=== PATIENT | female | born 1965 | race Caucasian/White ===

== ENCOUNTER 2016-08-26 10:03 | Emergency (ER) | payer SELFPAY ==
--- NOTE | 2016-08-26 10:09 | ER Document Report ---
ED Medical Screen (RME) - General Stated Complaint: ABSCESS Mode of Arrival: Ambulatory Information source: Patient Notes: Patient with abscess to left axilla for the past week. Patient does report a history of diabetes I have greeted and performed a rapid initial assessment of this patient. A comprehensive ED assessment and evaluation of the patient, analysis of test results and completion of the medical decision making process will be conducted by additional ED providers. TRAVEL OUTSIDE OF THE [place] IN LAST 30 DAYS: No - Related Data Allergies/Adverse Reactions: No Known Allergies Allergy (Unverified 12/23/10 05:33) Past Medical History Endocrine Medical History: Reports: Hx Diabetes Mellitus Type 2 Past Surgical History: Reports: Hx Section, Hx Cholecystectomy, Hx Tonsillectomy Physical Exam - Vital signs Vitals: Temp Pulse Resp BP Pulse Ox 99.0 F 101 H 16 131/79 H 96 08/26/16 10:06 08/26/16 10:06 08/26/16 10:06 08/26/16 10:06 08/26/16 10:06 - Skin Skin irregularity: Abscess - Left axilla Course - Vital Signs Vital signs: Temp Pulse Resp BP Pulse Ox 99.0 F 101 H 16 131/79 H 96 08/26/16 10:06 08/26/16 10:06 08/26/16 10:06 08/26/16 10:06 08/26/16 10:06
[2016-08-26] MEDS ORDERED: LIDOCAINE 1% INJ-PF (10 MG/ML) 30 ML SDV INJ ONE (11:50)
--- NOTE | 2016-08-26 12:42 | ER Document Report ---
ED General - General Chief Complaint: Boil Stated Complaint: ABSCESS Mode of Arrival: Ambulatory Information source: Patient Notes: 50-year-old female presents with complaints of abscess on the left armpit of a few day duration. Patient denies any fevers or chills nausea vomiting or diarrhea. Patient has had one similar episode on her abdomen which did not require incision TRAVEL OUTSIDE OF THE [place] IN LAST 30 DAYS: No - HPI Onset: Last week Onset/Duration: Persistent Quality of pain: Achy Severity: Mild Pain Level: 1 Associated symptoms: Other Exacerbated by: Denies Relieved by: Denies Similar symptoms previously: Yes Recently seen / treated by doctor: No - Related Data Allergies/Adverse Reactions: No Known Allergies Allergy (Verified 08/26/16 10:09) Past Medical History - General Information source: Patient - Social History Smoking Status: Never Smoker Cigarette use (# per day): No Chew tobacco use (# tins/day): No Smoking Education Provided: No Frequency of alcohol use: None Drug Abuse: None Family History: Reviewed & Not Pertinent Patient has suicidal ideation: No Patient has homicidal ideation: No - Past Medical History Cardiac Medical History: Reports: Hx Hypertension Endocrine Medical History: Reports: Hx Diabetes Mellitus Type 2 Renal/ Medical History: Denies: Hx Peritoneal Dialysis Past Surgical History: Reports: Hx Section, Hx Cholecystectomy, Hx Tonsillectomy - Immunizations Hx Diphtheria, Pertussis, Tetanus Vaccination: Yes Hx Pneumococcal Vaccination: 07/25/14 Review of Systems - Review of Systems Notes: REVIEW OF SYSTEMS: CONSTITUTIONAL : Denies fever, chills, or sweats. Denies recent illness. EENT: Denies eye, ear, throat, or mouth pain or symptoms. Denies nasal or sinus congestion or discharge. Denies throat, tongue, or mouth swelling or difficulty swallowing. CARDIOVASCULAR: Denies chest pain. Denies palpitations or racing or irregular heart beat. Denies ankle edema. RESPIRATORY: Denies cough, cold, or chest congestion. Denies shortness of breath, difficulty breathing, or wheezing. GASTROINTESTINAL: Denies abdominal pain or distention. Denies nausea, vomiting , or diarrhea. Denies blood in vomitus, stools, or per rectum. Denies black, tarry stools. Denies constipation. GENITOURINARY: Denies difficulty urinating, painful urination, burning, frequency, blood in urine, or discharge. FEMALE GENITOURINARY: Denies vaginal bleeding, heavy or abnormal periods, irregular periods. Denies vaginal discharge or odor. MUSCULOSKELETAL: Denies back or neck pain or stiffness. Denies joint pain or swelling. SKIN: Admits to left armpit abscess HEMATOLOGIC : Denies easy bruising or bleeding. LYMPHATIC: Denies swollen, enlarged glands. NEUROLOGICAL: Denies confusion or altered mental status. Denies passing out or loss of consciousness. Denies dizziness or lightheadedness. Denies headache. Denies weakness or paralysis or loss of use of either side. Denies problems with gait or speech. Denies sensory loss, numbness, or tingling. Denies seizures. PSYCHIATRIC: Denies anxiety or stress. Denies depression, suicidal ideation, or homicidal ideation. ALL OTHER SYSTEMS REVIEWED AND NEGATIVE. Dictation was performed using [employer] voice recognition software PHYSICAL EXAMINATION: GENERAL: Well-appearing, well-nourished and in no acute distress. HEAD: Atraumatic, normocephalic. EYES: Pupils equal round and reactive to light, extraocular movements intact, conjunctiva are normal. ENT: Nares patent, oropharynx clear without exudates. Moist mucous membranes. NECK: Normal range of motion, supple without lymphadenopathy LUNGS: Breath sounds clear to auscultation bilaterally and equal. No wheezes rales or rhonchi. HEART: Regular rate and rhythm without murmurs ABDOMEN: Soft, nontender, nondistended abdomen. No guarding, no rebound. No masses appreciated. Female : deferred Musculoskeletal: Normal range of motion, no pitting or edema. No cyanosis. NEUROLOGICAL: Cranial nerves grossly intact. Normal speech, normal gait. Normal sensory, motor exams PSYCH: Normal mood, normal affect. SKIN: Abscess left armpit measuring 4 x 6 cm with drainage and fluctuance with erythema Physical Exam - Vital signs Vitals: Temp Pulse Resp BP Pulse Ox 99.0 F 101 H 16 131/79 H 96 08/26/16 10:06 08/26/16 10:06 08/26/16 10:06 08/26/16 10:06 08/26/16 10:06 Course - Re-evaluation Re-evalutation: 08/26/16 12:42 Physical examination was consistent with an abscess, area was incised large amount of pus was drained. Patient will be placed on antibiotics given surgical follow-up After performing a Medical Screening Examination, I estimate there is LOW risk for OPEN FRACTURE, COMPARTMENT SYNDROME, TENDON RUPTURE, ACUTE NEUROVASCULAR INJURY, or RETAINED FOREIGN BODY, thus I consider the discharge disposition reasonable. Also, there is no evidence or peritonitis, sepsis, or toxicity. The patient and I have discussed the diagnosis and risks, and we agree with discharging home with close follow-up with the understanding that symptoms and presentations can change. We also discussed returning to the Emergency Department immediately if new or worsening symptoms occur. We have discussed the symptoms which are most concerning (e.g., changing or worsening pain, fever , numbness, weakness, cool or painful digits) that necessitate immediate return. - Vital Signs Vital signs: Temp Pulse Resp BP Pulse Ox 99.0 F 101 H 16 131/79 H 96 08/26/16 10:06 08/26/16 10:06 08/26/16 10:06 08/26/16 10:06 08/26/16 10:06 Procedures - Incision and Drainage Left Arm Time completed: 12:42 Type: Single Anesthetic type: 1% Lidocaine mL's of anesthetic: 10 Blade size: 11 Incision Method: Incision made by scalpel Amount/type of drainage: large amount of pus Discharge - Discharge Clinical Impression: Abscess of axilla, left Condition: Stable Disposition: HOME, SELF-CARE Instructions: Abscess ([facility]), Post Incision and Drainage Prescriptions: Cephalexin Monohydrate [Keflex 500 mg Capsule] 500 mg PO QID #40 capsule Hydrocodone/Acetaminophen [[place] 5-325 mg Tablet] 1 tab PO Q6 #14 tablet Sulfamethoxazole/Trimethoprim [Bactrim Ds Tablet] 2 each PO BID #40 tablet Referrals: YFN WARNER MD [[facility]] - Follow up in 3-5 days
[2016-08-26 13:35] VITALS: BP 120/70
== END 2016-08-26 13:40 | disposition home or self-care (01) ==
LOC: ER 10:03
PROC: 0H9CXZZ Drainage of Left Upper Arm Skin, External Approach (ICD-10-PCS; principal; 2016-08-26)
DX: L02.412 Cutaneous abscess of left axilla (principal); E11.9 Type 2 diabetes mellitus without complications; I10 Essential (primary) hypertension
CPT/HCPCS: 99283

== ENCOUNTER → 2017-01-20 | Outpatient (CLI) | payer OTHER ==
[2017-01-20 11:01] LABS: ALANINE AMINOTRANSFERASE 43 U/L (9-52); ALBUMIN 4.4 g/dL (3.5-5.0); ALKALINE PHOSPHATASE 87 U/L (38-126); ANION GAP 12 (5-19); ASPARTATE AMINO TRANSFERASE 28 U/L (14-36); BILIRUBIN,DIRECT 0.3 mg/dL (0.0-0.4); BILIRUBIN,TOTAL 0.5 mg/dL (0.2-1.3); BLOOD UREA NITROGEN 14 mg/dL (7-20); CALCIUM 9.3 mg/dL (8.4-10.2); CARBON DIOXIDE 26 mmol/L (22-30); CHLORIDE 103 mmol/L (98-107); CHOLESTEROL 193.24 mg/dL (0-200); CREATININE RESULT 0.71 mg/dL (0.52-1.25); Direct HDL 63 mg/dL (>40); GLUCOSE 102 mg/dL (75-110); POTASSIUM 4.9 mmol/L (3.6-5.0); SODIUM 141.3 mmol/L (137-145); TOTAL PROTEIN 7.6 g/dL (6.3-8.2); TRIGLYCERIDES 100 mg/dL (<150)
[2017-01-20 11:13] LABS: DIRECT LDL 107 mg/dL (<100)
[2017-01-21 10:37] LABS: CREATININE URINE 94.7 mg/dL (Not Estab.); MICROALBUMIN URINE 36.3 ug/mL (Not Estab.)
== END ==
LOC: OD 09:24
PROVIDERS: ATTEND Physician Assistant Medical
DX: E11.9 Type 2 diabetes mellitus without complications (principal); I10 Essential (primary) hypertension
CPT/HCPCS: 36415; 80053; 80061; 82043; 82570; 83036

== ENCOUNTER 2017-11-26 21:27 | Emergency (ER) | payer SELFPAY ==
[2017-11-26] MEDS ORDERED: SULFAMETHOXAZOLE/TRIMETHOPRIM 800-160 MG TABLET PO ONE (23:01)
[2017-11-26] MEDS ORDERED: HYDROMORPHONE HCL INJ/PF 2 MG/ML AMPULE IM ONE (23:01)
--- NOTE | 2017-11-26 23:03 | ER Document Report ---
ED General - General Chief Complaint: Abscess Stated Complaint: POSSIBLE ABSCESS Time Seen by Provider: 11/26/17 23:01 Notes: Patient is a 51-year-old female with medical history as recorded who presents with 2 days of progressively worsening pain and swelling on her left proximal inner arm. She notes that the area is a dull, throbbing, constant pain worsened by touching the area. She states that this feels similar when she has had abscesses in the past. Nothing improves the pain. She notes touching the area worsens the pain. She has not seen her primary doctor regarding today's concerns. She denies any associated fever or constitutional symptoms. She does also note that she has an additional small pustular lesion in her left axilla that is also quite painful and she is worried that this could also be an abscess. TRAVEL OUTSIDE OF THE [place] IN LAST 30 DAYS: No - Related Data Allergies/Adverse Reactions: No Known Allergies Allergy (Verified 08/26/16 10:09) Past Medical History - General Information source: Patient - Social History Smoking Status: Never Smoker Frequency of alcohol use: None Drug Abuse: None Lives with: Spouse/Significant other Family History: Reviewed & Not Pertinent - Past Medical History Cardiac Medical History: Reports: Hx Hypertension Endocrine Medical History: Reports: Hx Diabetes Mellitus Type 2 Renal/ Medical History: Denies: Hx Peritoneal Dialysis Past Surgical History: Reports: Hx Section, Hx Cholecystectomy, Hx Tonsillectomy - Immunizations Hx Diphtheria, Pertussis, Tetanus Vaccination: Yes Hx Pneumococcal Vaccination: 07/25/14 Review of Systems - Review of Systems Notes: Constitutional: Negative for fever. HENT: Negative for sore throat. Eyes: Negative for visual changes. Cardiovascular: Negative for chest pain. Respiratory: Negative for shortness of breath. Gastrointestinal: Negative for abdominal pain, vomiting or diarrhea. Genitourinary: Negative for dysuria. Musculoskeletal: Negative for back pain. Skin: Positive for left proximal cavity abscess as well as a left axillary abscess Neurological: Negative for headaches, weakness or numbness. 10 point ROS negative except as marked above and in HPI. Physical Exam - Vital signs Vitals: Temp Pulse Resp BP Pulse Ox 99.6 F 102 H 16 128/69 H 97 11/26/17 21:31 11/26/17 21:31 11/26/17 21:31 11/26/17 21:31 11/26/17 21:31 Interpretation: Tachycardic - Resolved at the time of my assessment Notes: PHYSICAL EXAMINATION: GENERAL: Well-appearing, well-nourished and in no acute distress. HEAD: Atraumatic, normocephalic. EYES: Pupils equal round and reactive to light, extraocular movements intact, sclera anicteric, conjunctiva are normal. ENT: nares patent, oropharynx clear without exudates. Moist mucous membranes. NECK: Normal range of motion, supple without lymphadenopathy LUNGS: Breath sounds clear to auscultation bilaterally and equal. No wheezes rales or rhonchi. HEART: Regular rate and rhythm without murmurs ABDOMEN: Soft, nontender, normoactive bowel sounds. No guarding, no rebound. No masses appreciated. EXTREMITIES: Normal range of motion, no pitting or edema. No cyanosis. NEUROLOGICAL: No focal neurological deficits. Moves all extremities spontaneously and on command. PSYCH: Normal mood, normal affect. SKIN: Warm, Dry, normal turgor, there is a 1 x 2 cm abscess over the left proximal inner arm with a 2 x 2 centimeter area of surrounding cellulitis. There is a small pustular lesion to the left axilla Course - Re-evaluation Re-evalutation: 11/26/17 23:02 Patient presents with a abscess on her left inner arm with a surrounding area of cellulitis. The area was incised and drained with expression of purulent drainage. Patient has been started on trimethoprim sulfamethoxazole. She is otherwise well in appearance, vitals within normal limits, no occasion of sepsis. No associated lymphadenopathy does suggest a spreading infection. No indication for labs or imaging at this time point. At this time will discharge with return precautions and follow-up recommendations. Verbal discharge instructions given a the bedside and opportunity for questions given. Medication warnings reviewed. Patient is in agreement with this plan and has verbalized understanding of return precautions and the need for primary care follow-up in the next 24-72 hours. - Vital Signs Vital signs: Temp Pulse Resp BP Pulse Ox 98.1 F 87 16 129/72 H 98 11/27/17 00:10 11/27/17 00:10 11/27/17 00:10 11/27/17 00:10 11/27/17 00:10 Procedures - Incision and Drainage Left Arm Type: Simple Anesthetic type: 1% Lidocaine mL's of anesthetic: 3 Blade size: 11 I&D procedure: Betadine prep applied Incision Method: Incision made by scalpel Amount/type of drainage: 5 cc of purulent drainage Left axilla Type: Simple Anesthetic type: 1% Lidocaine mL's of anesthetic: 1 Blade size: 11 I&D procedure: Betadine prep applied Incision Method: Incision made by scalpel Amount/type of drainage: 1 cc of purulent drainage Discharge - Discharge Clinical Impression: Abscess of left arm, Abscess of left axilla Condition: Good Disposition: HOME, SELF-CARE Additional Instructions: You were seen for an abscess that required drainage. Please clean this area with soap and water twice daily and apply a topical antibiotic. Dress the area after each cleaning. Please return if you develop fever, vomiting, the pain at the site worsens, you notice spreading redness from the area, or you have any other symptoms that are concerning to you. Prescriptions: Sulfamethoxazole/Trimethoprim [Bactrim Ds Tablet] 2 tab PO BID #28 tablet Referrals: ALFONSO GALICIA DO [Primary Care Provider] - Follow up as needed
[2017-11-27 01:15] VITALS: BP 129/72
== END 2017-11-27 00:09 | disposition home or self-care (01) ==
LOC: ER 21:27
PROC: 0H9CXZZ Drainage of Left Upper Arm Skin, External Approach (ICD-10-PCS; principal; 2017-11-26)
DX: L02.414 Cutaneous abscess of left upper limb (principal); L02.412 Cutaneous abscess of left axilla; E11.9 Type 2 diabetes mellitus without complications; Z90.49 Acquired absence of other specified parts of digestive tract; I10 Essential (primary) hypertension
CPT/HCPCS: 99283; 96372; 10060; J1170

== ENCOUNTER 2018-07-03 09:58 | Emergency (ER) | payer OTHER ==
[2018-07-03] MEDS ORDERED: IBUPROFEN 600 MG TABLET PO ONE (10:51)
[2018-07-03] MEDS ORDERED: CYCLOBENZAPRINE HCL 10 MG TABLET PO ONE (10:52)
--- NOTE | 2018-07-03 10:56 | ER Document Report ---
ED Neck/Back Problem - General Chief Complaint: Back Pain Stated Complaint: BACK PAIN Time Seen by Provider: 07/03/18 10:42 Mode of Arrival: Ambulatory Information source: Patient Notes: 52-year-old female presents to ED for complaint of left-sided back pain for the last few days. She said it actually started a [place]. She states that she and her were carrying a weight bench up the stairs and the pain is been since then. She states she has taken Motrin without any improvement. She states she does not know of a definite injury but she does know that it started after carrying that weight bench. She states she is also used a bone marrow and she is not sure which one caused the pain. Patient is alert oriented respirations regular and unlabored speaking in full sentences walks with a even steady gait. TRAVEL OUTSIDE OF THE [place] IN LAST 30 DAYS: No - HPI Patient complains to provider of: Pain - Left, Upper back Onset: Other Where: Home - [place], Indoors Onset: Gradual Timing: Still present Quality of pain: Achy, Sharp Pain Level: 4 Context: Lifting, Turning Recent injury: Possibly Associated symptoms: Upper back pain Exacerbated by: Cough/deep breaths, Movement of trunk Relieved by: Nothing Similar symptoms previously: Yes Recently seen / treated by doctor: No - Related Data Allergies/Adverse Reactions: No Known Allergies Allergy (Verified 08/26/16 10:09) Past Medical History - General Information source: Patient - Social History Smoking Status: Never Smoker Cigarette use (# per day): No Chew tobacco use (# tins/day): No Smoking Education Provided: No Frequency of alcohol use: None Drug Abuse: None Lives with: Family - Family History: Reviewed & Not Pertinent Patient has suicidal ideation: No Patient has homicidal ideation: No - Past Medical History Cardiac Medical History: Reports: Hx Hypertension Pulmonary Medical History: Reports: None EENT Medical History: Reports: None Neurological Medical History: Reports: None Endocrine Medical History: Reports: Hx Diabetes Mellitus Type 2 Renal/ Medical History: Reports: None Malignancy Medical History: Reports: None GI Medical History: Reports: Hx Gastroesophageal Reflux Disease Musculoskeletal Medical History: Reports None Skin Medical History: Reports None Psychiatric Medical History: Reports: None Traumatic Medical History: Reports: None Infectious Medical History: Reports: None Past Surgical History: Reports: Hx Adenoidectomy, Hx Section, Hx Cholecystectomy, Hx Tonsillectomy - Immunizations Immunizations up to date: Yes Hx Diphtheria, Pertussis, Tetanus Vaccination: Yes Hx Pneumococcal Vaccination: 07/25/14 Review of Systems - Review of Systems Constitutional: No symptoms reported EENT: No symptoms reported Cardiovascular: No symptoms reported Respiratory: No symptoms reported Gastrointestinal: No symptoms reported Genitourinary: No symptoms reported Female Genitourinary: No symptoms reported Musculoskeletal: Back pain, Muscle pain, Muscle stiffness Skin: No symptoms reported Hematologic/Lymphatic: No symptoms reported Neurological/Psychological: No symptoms reported -: Yes All other systems reviewed and negative Physical Exam - Vital signs Vitals: Temp Pulse Resp BP Pulse Ox 98.5 F 73 18 121/66 97 07/03/18 10:08 07/03/18 10:08 07/03/18 10:08 07/03/18 10:08 07/03/18 10:08 Interpretation: Normal - General General appearance: Appears well, Alert - HEENT Head: Normocephalic, Atraumatic Eyes: Normal Pupils: PERRL - Respiratory Respiratory status: No respiratory distress Chest status: Nontender Breath sounds: Normal Chest palpation: Normal - Cardiovascular Rhythm: Regular Heart sounds: Normal auscultation Murmur: No - Abdominal Inspection: Normal Distension: No distension Bowel sounds: Normal Tenderness: Nontender Organomegaly: No organomegaly - Back Back: Normal, Tender - Upper back. No: Deformity/step-off, CVA tenderness, Vertebra tenderness, Scars, Scoliosis, Wounds - Extremities General upper extremity: Normal inspection, Nontender, Normal color, Normal ROM, Normal temperature General lower extremity: Normal inspection, Nontender, Normal color, Normal ROM, Normal temperature, Normal weight bearing. No: Rebecca's sign - Neurological Neuro grossly intact: Yes Cognition: Normal Orientation: AAOx4 [place] Coma Scale Eye Opening: Spontaneous [place] Coma Scale Verbal: Oriented [place] Coma Scale Motor: Obeys Commands Olivia Coma Scale Total: 15 Speech: Normal Motor strength normal: LUE, RUE, LLE, RLE Sensory: Normal - Psychological Associated symptoms: Normal affect, Normal mood - Skin Skin Temperature: Warm Skin Moisture: Dry Skin Color: Normal Course - Re-evaluation Re-evalutation: 07/03/18 12:37 X-ray discussed with patient. Patient was treated with muscle relaxants and discharged home with prescription for muscle relaxants. Patient was instructed to follow-up with her primary doctor. Patient was given incentive spirometry to use to prevent pneumonia. Patient will be discharged home. Patient verbalized understanding and agreement with treatment plan. - Vital Signs Vital signs: Temp Pulse Resp BP Pulse Ox 98.1 F 88 16 124/74 97 07/03/18 12:33 07/03/18 12:33 07/03/18 12:33 07/03/18 12:33 07/03/18 12:33 - Diagnostic Test Radiology reviewed: Image reviewed, Reports reviewed Discharge - Discharge Clinical Impression: Upper back pain on left side Condition: Stable Disposition: HOME, SELF-CARE Additional Instructions: MUSCLE STRAIN: You have strained a muscle -- torn the fibers within the muscle. This often occurs with strenuous exertion, or during an injury that suddenly stretches the muscle. The seriousness of a strain varies. Some strains heal within days, others cause problems for months. X-rays cannot show a muscle strain. X-rays are taken only if symptoms suggest that a fracture could be present. The usual treatment of a muscle strain is rest and ice packs. Sometimes, a sling, splint, or crutches may be necessary to rest the muscle. The muscle can be used again once pain subsides. Severe strains require a special exercise and stretching program to prevent permanent stiffness and disability. Your doctor will advise you if this will be necessary. Call the doctor immediately if pain or swelling becomes severe, or if numbness or discoloration develop. USE OF TYLENOL (ACETAMINOPHEN): Acetaminophen may be taken for pain relief or fever control. It's much safer than aspirin, offering a wider range of "safe" dosages. It is safe during . Some brand names are Tylenol, Panadol, Datril, Anacin 3, Tempra, and Liquiprin. Acetaminophen can be repeated every four hours. The following are maximum recommended dosages: WEIGHT Dose Drops Elixir Chewable(80mg) (LBS.) drprs=droppers tsp=teaspoon 6 40 mg 0.4 ml (1/2) 6-11 80 mg 0.8 ml (full) tsp 1 tab 12-16 120 mg 1 1/2 drprs 3/4 tsp 1 1/2 tabs 17-23 160 mg 2 drprs 1 tsp 2 tabs 24-30 240 mg 3 drprs 1 1/2 tsp 3 tabs 30-35 320 mg 2 tsp 4 tabs 36-41 360 mg 2 1/4 tsp 4 1/2 tabs 42-47 400 mg 2 1/2 tsp 5 tabs 48-53 480 mg 3 tsp 6 tabs 54-59 520 mg 3 1/4 tsp 6 1/2 tabs 60-64 560 mg 3 1/2 tsp 7 tabs 65-70 600 mg 3 3/4 tsp 7 1/2 tabs 71-76 640 mg 4 tsp 8 tabs 77-82 720 mg 4 1/2 tsp 9 tabs 83-88 800 mg 5 tsp 10 tabs >89 pounds or adults 650 mg to 900 mg Acetaminophen can be repeated every four hours. Maximum dose not to exceed 4000 mg a day. These maximum recommended dosages are slightly higher than the dosages written on the product container, but these dosages are very safe and below the toxic dosage for acetaminophen. ICE PACKS: Apply ice packs frequently against the painful area. Many different schedules are recommended, such as "20 minutes on, 20 minutes off" or "one hour ice, two hours rest." If you need to work, you may need to go longer between ice treatments. You should plan to have the area ice packed AT LEAST one fourth of the time. The ice should be applied over the wrap, tape, or splint, or over a layer of cloth -- not directly against the skin. Some ice bags have a built-in cloth and can be put directly on the skin. WARM PACKS: After approximately two days, apply gentle heat (such as a heating pad or hot water bottle) for about 20 to 30 minutes about every two hours -- at least four times daily. Warmth and elevation will help you make a more rapid recovery, and will ease the pain considerably. Do not use HOT heat, and never apply heat for longer than 30 minutes. The continuous heat can invisibly damage skin and muscles -- even when no burn is seen on the surface. Damaged muscles can make you MORE sore. MUSCLE RELAXERS: Muscle relaxing medications are usually prescribed for acute muscle spasm or injury to the neck and back. They are often combined with antiinflammatory pain medication for increased relief. You may stop the muscle relaxer when the pain and stiffness have improved. Start the medication again if spasms recur. Muscle relaxers may cause drowsiness, especially with the first dose. Do not operate machinery or drive while under the effects of the medication. Most muscle relaxers last up to 24 hours. Do not combine the medication with alcohol. Ibuprofen Ibuprofen is an excellent, safe drug for pain control. In addition, it has potent antiinflammatory effects which are beneficial, especially in the treatment of injuries, arthritis, or tendonitis. It's best to take ibuprofen with food. Persons with ulcer disease or allergy to aspirin should notify their physician of this before taking ibuprofen. Take the medication exactly as prescribed. Don't take additional doses unless instructed to do so by your doctor. If you develop wheezing, shortness of breath, hives, faintness, stomach pain, vomiting, or dark black stools, return for re-evaluation at once. FOLLOW-UP CARE: If you have been referred to a physician for follow-up care, call the physicians office for an appointment as you were instructed or within the next two days. If you experience worsening or a significant change in your symptoms, notify the physician immediately or return to the Emergency Department at any time for re-evaluation. Prescriptions: Cyclobenzaprine HCl [Flexeril 10 mg Tablet] 10 mg PO TIDP PRN #15 tab PRN Reason: Forms: Return to Work Referrals: ALFONSO GALICIA DO [Primary Care Provider] - Follow up in 3-5 days
--- NOTE | 2018-07-03 12:20 | RADIOLOGY REPORT (SQ) ---
EXAM DESCRIPTION: RIBS LEFT W/PA CHEST COMPLETED DATE/TIME: 07/03/2018 11:33 am REASON FOR STUDY: pain left upper back COMPARISON: None. TECHNIQUE: Frontal view of the chest and additional views of the left ribs acquired. NUMBER OF VIEWS: Three view. LIMITATIONS: None. FINDINGS: FRONTAL CXR: No pneumothorax. No pleural effusion. No atelectasis or infiltrates. RIBS: No displaced rib fractures. No lytic or blastic bony lesions. OTHER: No other significant finding. IMPRESSION: No displaced fracture or other radiographic abnormality of the left ribs to explain pain . COMMENT: SITE OF TRAUMA/COMPLAINT MARKED/STAMP COMPLETED: YES. TECHNICAL DOCUMENTATION: JOB ID: [id number] [employer]- All Rights Reserved Reading location - IP/workstation name: [email or web address]
[2018-07-03 12:41] VITALS: BP 124/74
== END 2018-07-03 12:33 | disposition home or self-care (01) ==
LOC: ER 09:58
DX: M54.89 Other dorsalgia (principal); I10 Essential (primary) hypertension; E11.9 Type 2 diabetes mellitus without complications
CPT/HCPCS: 99283

== ENCOUNTER 2018-08-06 19:15 | Emergency (ER) | payer OTHER ==
[2018-08-06] MEDS ORDERED: ACETAMINOPHEN 325 MG TABLET PO ONE (23:19)
--- NOTE | 2018-08-06 23:24 | ER Document Report ---
ED ENT - General Chief Complaint: Sore Throat Stated Complaint: SORE THROAT Time Seen by Provider: 08/06/18 23:02 Primary Care Provider: MARTÍN RODRIGUEZ MD [ACTIVE STAFF] - Follow up as needed Mode of Arrival: Ambulatory Information source: Patient Notes: 52-year-old female presents to ED for complaint of sore throat times 1 week. She states she had a stuffy nose 3 or 4 days ago but it has improved. She states she also had a low-grade fever at that time. She states she also has some pain to the right ear. Patient is alert oriented respirations regular and unlabored speaking in full sentences walks with a even steady gait. Patient already had a strep test completed which was negative for rapid strep. TRAVEL OUTSIDE OF THE [place] IN LAST 30 DAYS: No - HPI Patient complains to provider of: Ear problem - Right otalgia, Nose problem, Throat problem Onset: Last week Onset/Duration: Intermittent Quality of pain: Other - Sore throat tenderness to the left ear and behind the left ear. Severity: Moderate Pain Level: 4 Context: Recent Illness Location of pain: Ears - Right, Nose, Throat Associated symptoms: Ear pain, Runny nose, Sinus drainage, Sore throat, Swollen glands. denies: Ear drainage, Fever - She had a fever 3 or 4 days ago not now Similar symptoms previously: Yes Recently seen / treated by doctor: No - Related Data Allergies/Adverse Reactions: No Known Allergies Allergy (Verified 08/26/16 10:09) Past Medical History - General Information source: Patient - Social History Smoking Status: Never Smoker Chew tobacco use (# tins/day): No Frequency of alcohol use: None Drug Abuse: None Lives with: Family Family History: Reviewed & Not Pertinent Patient has suicidal ideation: No Patient has homicidal ideation: No - Past Medical History Cardiac Medical History: Reports: Hx Hypertension Pulmonary Medical History: Reports: None EENT Medical History: Reports: None Neurological Medical History: Reports: None Endocrine Medical History: Reports: Hx Diabetes Mellitus Type 2 Renal/ Medical History: Reports: None Malignancy Medical History: Reports: None GI Medical History: Reports: Hx Gastroesophageal Reflux Disease Musculoskeletal Medical History: Reports None Skin Medical History: Reports None Psychiatric Medical History: Reports: None Traumatic Medical History: Reports: None Infectious Medical History: Reports: None Past Surgical History: Reports: Hx Adenoidectomy, Hx Section, Hx Cholecystectomy, Hx Tonsillectomy - Immunizations Immunizations up to date: Yes Hx Diphtheria, Pertussis, Tetanus Vaccination: Yes Hx Pneumococcal Vaccination: 07/25/14 Review of Systems - Review of Systems Constitutional: Chills, Fever - 3 or 4 days ago but not now, Recent illness EENT: Ear pain, Nose discharge, Sinus discharge, Throat pain. denies: Diffi culty swallowing Cardiovascular: No symptoms reported Respiratory: No symptoms reported Gastrointestinal: No symptoms reported Genitourinary: No symptoms reported Female Genitourinary: No symptoms reported Musculoskeletal: No symptoms reported Skin: No symptoms reported Hematologic/Lymphatic: No symptoms reported Neurological/Psychological: No symptoms reported -: Yes All other systems reviewed and negative Physical Exam - Vital signs Vitals: Temp Pulse Resp BP Pulse Ox 98.3 F 78 20 145/69 H 97 08/06/18 19:23 08/06/18 19:23 08/06/18 19:23 08/06/18 19:23 08/06/18 19:23 Interpretation: Normal - General General appearance: Appears well, Alert - HEENT Head: Normocephalic, Atraumatic Eyes: Normal Pupils: PERRL Ears: Normal External canal: Normal Tympanic membrane: Other - States she has pain to movement and palpation of the right ear there is minimal serous drainage but no infusion no infection no bulging. No: Bulging, Injected, Loss of landmarks, Perforation Sinus: Normal Nasal: Purulent discharge, Swelling Mouth/Lips: Normal Mucous membranes: Normal Pharynx: Post nasal drainage. No: Erythema, Exudate, Tonsillar hypertrophy Neck: Anterior cervical chain, Posterior cervical chain - Respiratory Respiratory status: No respiratory distress Chest status: Nontender Breath sounds: Normal Chest palpation: Normal - Cardiovascular Rhythm: Regular Heart sounds: Normal auscultation Murmur: No - Abdominal Inspection: Normal Distension: No distension Bowel sounds: Normal Tenderness: Nontender Organomegaly: No organomegaly - Back Back: Normal, Nontender - Extremities General upper extremity: Normal inspection, Nontender, Normal color, Normal ROM, Normal temperature General lower extremity: Normal inspection, Nontender, Normal color, Normal ROM, Normal temperature, Normal weight bearing. No: Rebecca's sign - Neurological Neuro grossly intact: Yes Cognition: Normal Orientation: AAOx4 Olivia Coma Scale Eye Opening: Spontaneous Olivia Coma Scale Verbal: Oriented Olivia Coma Scale Motor: Obeys Commands [place] Coma Scale Total: 15 Speech: Normal Motor strength normal: LUE, RUE, LLE, RLE Sensory: Normal - Psychological Associated symptoms: Normal affect, Normal mood - Skin Skin Temperature: Warm Skin Moisture: Dry Skin Color: Normal Course - Re-evaluation Re-evalutation: 08/06/18 23:29 Results of strep test discussed with patient and written report of strep given to patient to follow-up with the primary doctor. Patient was instructed to follow-up with ENT if she continued to have pain in her right ear or her throat. There is no signs or symptoms of strep at this time. Patient does have an viral and sore throat. Patient was instructed to follow-up with her primary doctor. Patient was given instructions on things that she can use for her viral sore throat. After performing a Medical Screening Examination, I estimate there is LOW risk for ACUTE CORONARY SYNDROME, RESPIRATORY FAILURE, SEPSIS OR MENINGITIS, thus I consider the discharge disposition reasonable. I have reevaluated this patient multiple times and no significant life threatening changes are noted. The patient and I have discussed the diagnosis and risks, and we agree with discharging home with close follow-up. We also discussed returning to the Emergency Department immediately if new or worsening symptoms occur. We have discussed the symptoms which are most concerning (e.g., changing or worsening pain, trouble swallowing or breathing, neck stiffness, fever) that necessitate immediate return. - Vital Signs Vital signs: Temp Pulse Resp BP Pulse Ox 97.9 F 73 17 139/82 H 96 08/06/18 23:39 08/06/18 23:39 08/06/18 23:39 08/06/18 23:39 08/06/18 23:39 Discharge - Discharge Clinical Impression: Viral illness, Sore throat (viral), Otalgia of right ear Condition: Stable Disposition: HOME, SELF-CARE Instructions: Family Physicians / Practices Additional Instructions: UPPER RESPIRATORY ILLNESS: You have a viral infection of the respiratory passages -- a "cold." This common infection causes nasal congestion, drainage, and often sore throat and cough. It is highly contagious. The disease usually lasts about 10 to 14 days. There is no "cure" for the viral infection -- it must run its course. If there is a complication, such as bacterial infection in the nose, sinuses, middle ear, or bronchial tubes, antibiotics may be required. The antibiotics won't affect the virus. Drink plenty of fluids. A humidifier may help. An expectorant medication or decongestant may make you more comfortable. Use acetaminophen or ibuprofen for fever or aches. See the doctor if fever persists over two days, if there is any significant worsening of your symptoms, or if you simply fail to improve as expected. SORE THROAT: Sore throats may be caused by viruses, bacteria, or fungi. Most are due to a virus, and must get better on their own. Bacterial sore throats, particularly those due to "strep," need treatment with antibiotics. If an antibiotic is prescribed, be sure to take the medication for a full 10 days. Failure to take the antibiotic can result in complications such as rheumatic fever. Sometimes, an injection of antibiotics is given instead of pills or liquid. This single "shot" is equal in effectiveness to the oral medication. To relieve symptoms, take acetaminophen for pain. Sip clear liquids frequently, or eat popsicles or ice chips. Anesthetic sprays or lozenges may help. Make sure the air in the room is not too dry. Avoid using decongestants or antihistamines. Call the doctor if there is no improvement in two days, or if you have difficulty breathing, increasing throat pain, high fever, rash, or frequent vomiting. With your elevated blood pressure you are not able to use regular [id number] cough cold congestion medications. You can use Coricidin HB which will help your cold symptoms. For your sore throat you can use Chloraseptic spray or throat lozenges. Salt and soda solution will often help with your salt sore throat also. Please be careful using ibuprofen which elevated blood pressure as it can raise your blood pressure. Flonase nasal spr ay can also help with your congestion and postnasal drip which is causing your sore throat. USE OF ACETAMINOPHEN (Tylenol): Acetaminophen may be taken for pain relief or fever control. It's much safer than aspirin, offering a wider range of "safe" dosages. It is safe during . Some brand names are Tylenol, Panadol, Datril, Anacin 3, Tempra, and Liquiprin. Acetaminophen can be repeated every four hours. The following are maximum recommended dosages: >89 pounds or adults 650 mg to 900 mg Acetaminophen can be repeated every four hours. Maximum dose not to exceed 4000 mg a day. Salt and soda solution 1 quart of water 1 tablespoon of salt 1 teaspoon of baking soda Mixed 3 ingredients together and boil for 1 minute Placed in a covered quart jar Use 1/2 ounce of cold solution to gargle 3 times a day If he continued to have pain in your right ear please follow-up with the ears nose and throat specialist. There is no signs of a bacterial infection at this time but they can progress to a otitis media or externa when you have a cold and drainage in your sinuses. FOLLOW-UP CARE: If you have been referred to a physician for follow-up care, call the physicians office for an appointment as you were instructed or within the next two days. If you experience worsening or a significant change in your symptoms, notify the physician immediately or return to the Emergency Department at any time for re-evaluation. Forms: Elevated Blood Pressure, Return to Work Referrals: MARTÍN RODRIGUEZ MD [ACTIVE STAFF] - Follow up as needed
[2018-08-06 23:43] VITALS: BP 139/82
== END 2018-08-06 23:43 | disposition home or self-care (01) ==
LOC: ER 19:15
DX: B34.9 Viral infection, unspecified (principal); J02.9 Acute pharyngitis, unspecified; H92.03 Otalgia, bilateral; R50.9 Fever, unspecified; I10 Essential (primary) hypertension; E11.9 Type 2 diabetes mellitus without complications
CPT/HCPCS: 87070; 87880; 99283